=== PATIENT | male | born 1955 | race African-American/Black ===

== ENCOUNTER 2021-07-17 03:27 | Inpatient (IN) | payer MEDICARE, MEDICAID ==
[~2021-07-17] VITALS: Ht 182.9 cm; Wt 90.8 kg
[2021-07-17] MEDS ORDERED: MORPHINE SULFATE 4 MG/ML CPJ (NOT FOR IM USE) IV STA (03:50)
[2021-07-17] MEDS ORDERED: ONDANSETRON HCL 4MG/2ML INJ IV STA (03:50)
[2021-07-17 04:02] LABS: BASOPHILS % 0.5 % (0.0-2.0); EOSINOPHILS % 0.3 % (0.0-5.0); HEMATOCRIT. 44.9 % (42.0-52.0); LYMPHOCYTES % 14.6 % (20.0-50.0); MEAN CORPUSCULAR HEMOGLOBIN 31.1 pg (28.0-32.0); MEAN CORPUSCULAR VOLUME 92.8 fL (80.0-94.0); MEAN PLATELET VOLUME 7.5 fl (7.4-10.4); MONOCYTES % 5.6 % (2.0-8.0); PLATELET 247 x1000/uL (130-400); RED BLOOD CELL COUNT 4.83 mill/uL (4.7-6.1); RED CELL DISTRIBUTION WIDTH 13.6 % (11.6-14.6)
[2021-07-17 04:12] LABS: CHLORIDE 106 mEq/L (98-107)
[2021-07-17] MEDS ORDERED: MORPHINE SULFATE 4 MG/ML CPJ (NOT FOR IM USE) IV ONE (04:30)
[2021-07-17] MEDS ORDERED: METRONIDAZOLE 500 MG PREMIX 100 ML IV ONE (05:30)
[2021-07-17] MEDS ORDERED: LEVOFLOXACIN 750MG PREMIX 150 ML IV ONE (05:30)
[2021-07-17] MEDS ORDERED: FENTANYL CITRATE/PF 50MCG/ML 2ML VIAL IV ONE (06:00)
[2021-07-17] MEDS ORDERED: KETOROLAC 30MG/ML VIAL IV STA (06:19)
[2021-07-17] MEDS ORDERED: SODIUM CHLORIDE 0.9% 1,000 ML IV ONE (06:30)
[2021-07-17 08:00] VITALS: BP 124/71
[2021-07-17 08:45] LABS: CLARITY URINE CLEAR (CLEAR); COLOR URINE YELLOW (YELLOW); KETONES URINE 1+ (NEGATIVE); LEUKOCYTE ESTERASE URINE NEGATIVE (NEGATIVE); NITRITE URINE NEGATIVE (NEGATIVE); OCCULT BLOOD URINE NEGATIVE (NEGATIVE); PROTEIN URINE NEGATIVE (NEGATIVE); SPECIFIC GRAVITY URINE 1.017 (1.005-1.030)
[2021-07-17] MEDS ORDERED: HYDROCODONE/ACETAMINOPHEN 5/325MG TABLET PO NR (10:15)
[2021-07-17] MEDS ORDERED: NALOXONE HCL 0.4MG/ML VIAL IV PRN ×2 (10:15→19:15)
[2021-07-17 11:31] VITALS: BP 124/71
[2021-07-17 12:00] VITALS: BP 105/71
[2021-07-17] MEDS: DEXT 5%/0.9% NACL 1,000 ML IV SCH (14:34)
[2021-07-17] MEDS: PIPERACILLIN/TAZOBACTAM 3.375 G in DEXTROSE 5% WATER 50 ML IV SCH ×2 (14:34→22:02)
[2021-07-17 16:00] VITALS: BP 103/47
[2021-07-17] MEDS: HYDROCODONE/ACETAMINOPHEN 10/325MG TABLET PO PRN ×2 (19:49→19:52)
[2021-07-17 20:00] VITALS: BP 99/56
[2021-07-18] VITALS: BP 111/64
[2021-07-18 04:00] VITALS: BP 108/62
[2021-07-18] MEDS: HYDROCODONE/ACETAMINOPHEN 10/325MG TABLET PO PRN ×5 (04:21→22:42)
[2021-07-18] MEDS: PIPERACILLIN/TAZOBACTAM 3.375 G in DEXTROSE 5% WATER 50 ML IV SCH ×3 (05:06→21:01)
[2021-07-18] MEDS: DEXT 5%/0.9% NACL 1,000 ML IV SCH ×3 (05:11→20:15)
[2021-07-18 07:10] LABS: HEMATOCRIT. 42.3 % (42.0-52.0); HEMOGLOBIN. 14.3 g/dL (14.0-18.0); MEAN CORPUSCULAR HEMOGLOBIN 31.1 pg (28.0-32.0); MEAN CORPUSCULAR VOLUME 91.8 fL (80.0-94.0); MEAN PLATELET VOLUME 8.4 fl (7.4-10.4); PLATELET 250 x1000/uL (130-400); RED BLOOD CELL COUNT 4.61 mill/uL (4.7-6.1); RED CELL DISTRIBUTION WIDTH 13.7 % (11.6-14.6)
[2021-07-18 07:22] LABS: CHLORIDE 105 mEq/L (98-107)
[2021-07-18 08:00] VITALS: BP 121/66
[2021-07-18] MEDS ORDERED: LACTULOSE 20G/30ML UDC PO NR (08:00)
[2021-07-18] MEDS ORDERED: VANCOMYCIN 2,000 MG in DEXT 5% WATER 500 ML IV SCH (08:00)
[2021-07-18 08:48] LABS: PLATELET ESTIMATE NORMAL
[2021-07-18] MEDS: DOCUSATE SODIUM 250MG CAPSULE PO SCH (09:54)
[2021-07-18] MEDS: ONDANSETRON HCL 4MG/2ML INJ IV PRN (10:09)
[2021-07-18 11:56] VITALS: BP 112/82
[2021-07-18] MEDS ORDERED: BISACODYL 10MG SUPP PR NR (12:30)
[2021-07-18 16:00] VITALS: BP 139/82
[2021-07-18] MEDS ORDERED: SORBITOL 70% SOLN 30ML PO NR (16:00)
[2021-07-18 16:38] LABS: *AMPHETAMINES SCREEN URINE NEGATIVE (NEGATIVE); *BARBITURATES SCREEN URINE NEGATIVE (NEGATIVE)
[2021-07-18 16:39] LABS: *BENZODIAZEPINES SCREEN URINE NEGATIVE (NEGATIVE); *COCAINE SCREEN URINE NEGATIVE (NEGATIVE); METHADONE URINE SCREEN NEGATIVE (NEGATIVE); OPIATES URINE SCREEN PRESUMTIVE POSITIVE (NEGATIVE); PHENCYCLIDINE URINE SCREEN NEGATIVE (NEGATIVE)
[2021-07-18 16:40] LABS: CANNABINOID URINE SCREEN NEGATIVE (NEGATIVE)
[2021-07-18] MEDS: METOCLOPRAMIDE HCL 10MG/2ML VIAL IV SCH (16:53)
[2021-07-18 20:00] VITALS: BP 128/72
[2021-07-18] MEDS ORDERED: POTASSIUM CHLORIDE 20MEQ TABLET SR PO NR (20:15)
[2021-07-19] VITALS: BP 103/63
[2021-07-19] MEDS: METOCLOPRAMIDE HCL 10MG/2ML VIAL IV SCH ×3 (00:14→12:19)
[2021-07-19] MEDS ORDERED: MORPHINE SULFATE 2 MG/ML CPJ (NOT FOR IM USE) IV SCH (00:30)
[2021-07-19 04:00] VITALS: BP 133/77
[2021-07-19] MEDS ORDERED: VANCOMYCIN 1.25GM PMX (XELLIA) 250 ML IV SCH (04:00)
[2021-07-19] MEDS: KETOROLAC 30MG/ML VIAL IV PRN ×3 (05:29→21:35)
[2021-07-19] MEDS: PIPERACILLIN/TAZOBACTAM 3.375 G in DEXTROSE 5% WATER 50 ML IV SCH ×3 (05:29→21:21)
[2021-07-19 06:02] LABS: HEMATOCRIT. 46.4 % (42.0-52.0); HEMOGLOBIN. 15.6 g/dL (14.0-18.0); MEAN CORPUSCULAR HEMOGLOBIN 30.8 pg (28.0-32.0); MEAN CORPUSCULAR VOLUME 91.7 fL (80.0-94.0); PLATELET 284 x1000/uL (130-400); RED BLOOD CELL COUNT 5.07 mill/uL (4.7-6.1); RED CELL DISTRIBUTION WIDTH 13.8 % (11.6-14.6)
[2021-07-19 08:00] VITALS: BP 116/77
[2021-07-19] MEDS: DOCUSATE SODIUM 250MG CAPSULE PO SCH (09:00)
[2021-07-19 09:10] LABS: PLATELET ESTIMATE NORMAL
[2021-07-19 12:00] VITALS: BP 122/64
[2021-07-19] MEDS ORDERED: NA PHOS,M-B/NA PHOS,DI-BA ENEMA 118ML PR NR (14:15)
[2021-07-19] MEDS: DEXT 5%/0.9% NACL 1,000 ML IV SCH (15:39)
[2021-07-19 16:00] VITALS: BP 127/71
[2021-07-19] MEDS ORDERED: BISACODYL 10MG SUPP PR NR (16:15)
[2021-07-19 20:00] VITALS: BP 117/83
[2021-07-19] MEDS: HYDROCODONE/ACETAMINOPHEN 10/325MG TABLET PO PRN (21:21)
[2021-07-19] MEDS: ONDANSETRON HCL 4MG/2ML INJ IV PRN (21:21)
[2021-07-19] MEDS ORDERED: MORPHINE SULFATE 2 MG/ML CPJ (NOT FOR IM USE) IV NR (22:00)
[2021-07-19] MEDS ORDERED: VANCOMYCIN 1GM PMX (XELLIA) 200 ML IV SCH (23:00)
[2021-07-20] VITALS: BP 125/76
[2021-07-20] MEDS: DEXT 5%/0.9% NACL 1,000 ML IV SCH ×2 (00:59→12:15)
[2021-07-20 04:00] VITALS: BP 127/74
[2021-07-20] MEDS: PIPERACILLIN/TAZOBACTAM 3.375 G in DEXTROSE 5% WATER 50 ML IV SCH ×3 (05:19→20:41)
[2021-07-20 08:00] VITALS: BP 126/76
[2021-07-20] MEDS: HYDROCODONE/ACETAMINOPHEN 10/325MG TABLET PO PRN (09:30)
[2021-07-20] MEDS: KETOROLAC 30MG/ML VIAL IV PRN (09:35)
[2021-07-20 10:22] LABS: HEMATOCRIT. 42.5 % (42.0-52.0); HEMOGLOBIN. 14.5 g/dL (14.0-18.0); MEAN CORPUSCULAR HEMOGLOBIN 31.7 pg (28.0-32.0); MEAN CORPUSCULAR VOLUME 92.6 fL (80.0-94.0); PLATELET 292 x1000/uL (130-400); RED BLOOD CELL COUNT 4.59 mill/uL (4.7-6.1); RED CELL DISTRIBUTION WIDTH 13.8 % (11.6-14.6)
[2021-07-20 12:00] VITALS: BP 103/68
[2021-07-20 12:02] LABS: PLATELET ESTIMATE NORMAL
[2021-07-20 16:00] VITALS: BP 120/78
[2021-07-20] MEDS: DEXT 5%/0.9% NACL KCL 20MEQ/L 1,000 ML IV SCH (17:29)
[2021-07-20] MEDS ORDERED: DIATR MEGLU/DIATRIZOATE SOLN 30ML PO SCH (19:45)
[2021-07-20 20:00] VITALS: BP 143/82
[2021-07-20] MEDS: DIPHENHYDRAMINE 50MG/ML VIAL IV PRN (20:41)
[2021-07-21] VITALS: BP 140/69
[2021-07-21] MEDS: DEXT 5%/0.9% NACL KCL 20MEQ/L 1,000 ML IV SCH ×3 (01:12→23:13)
[2021-07-21] MEDS: KETOROLAC 30MG/ML VIAL IV PRN (01:16)
[2021-07-21 04:00] VITALS: BP 128/73
[2021-07-21] MEDS: PIPERACILLIN/TAZOBACTAM 3.375 G in DEXTROSE 5% WATER 50 ML IV SCH ×3 (06:31→23:13)
[2021-07-21 07:27] LABS: BASOPHILS % 0.2 % (0.0-2.0); EOSINOPHILS % 1.7 % (0.0-5.0); HEMATOCRIT. 39.4 % (42.0-52.0); HEMOGLOBIN. 13.4 g/dL (14.0-18.0); LYMPHOCYTES % 10.8 % (20.0-50.0); MEAN CORPUSCULAR VOLUME 91.3 fL (80.0-94.0); MEAN PLATELET VOLUME 7.7 fl (7.4-10.4); MONOCYTES % 11.1 % (2.0-8.0); NEUTROPHILS % 76.2 % (40.0-76.0); PLATELET 320 x1000/uL (130-400); RED BLOOD CELL COUNT 4.32 mill/uL (4.7-6.1); RED CELL DISTRIBUTION WIDTH 13.9 % (11.6-14.6)
[2021-07-21 07:52] LABS: INR 1.1; PARTIAL THROMBOPLASTIN TIME 26.4 sec (23.4-31.0); PROTHROMBIN TIME 11.6 sec (9.6-11.0)
[2021-07-21 08:00] VITALS: BP 132/75
[2021-07-21 12:00] VITALS: BP 121/74
[2021-07-21] MEDS ORDERED: SODIUM CHLORIDE 0.45% 1,000 ML IV SCH (13:45)
[2021-07-21 16:00] VITALS: BP 115/73
[2021-07-21] MEDS: SODIUM CHLORIDE 0.45% 1,000 ML IV SCH (17:22)
[2021-07-21] MEDS: METOCLOPRAMIDE HCL 10MG/2ML VIAL IV SCH ×2 (18:55→23:13)
[2021-07-21 20:00] VITALS: BP 138/77
[2021-07-21] MEDS: MORPHINE SULFATE 4 MG/ML CPJ (NOT FOR IM USE) IV PRN (20:37)
[2021-07-21] MEDS: DIPHENHYDRAMINE 50MG/ML VIAL IV PRN (23:13)
[2021-07-22] VITALS: BP 133/87
[2021-07-22 04:00] VITALS: BP 144/90
[2021-07-22] MEDS: SODIUM CHLORIDE 0.45% 1,000 ML IV SCH (04:06)
[2021-07-22] MEDS: METOCLOPRAMIDE HCL 10MG/2ML VIAL IV SCH ×4 (05:51→23:16)
[2021-07-22] MEDS: MORPHINE SULFATE 4 MG/ML CPJ (NOT FOR IM USE) IV PRN ×4 (05:55→23:16)
[2021-07-22] MEDS: PIPERACILLIN/TAZOBACTAM 3.375 G in DEXTROSE 5% WATER 50 ML IV SCH ×3 (05:56→22:29)
[2021-07-22 08:00] VITALS: BP 137/91
[2021-07-22 08:33] LABS: BASOPHILS % 0.5 % (0.0-2.0); HEMATOCRIT. 37.7 % (42.0-52.0); HEMOGLOBIN. 12.9 g/dL (14.0-18.0); LYMPHOCYTES % 14.6 % (20.0-50.0); MEAN CORPUSCULAR HEMOGLOBIN 31.2 pg (28.0-32.0); MEAN CORPUSCULAR VOLUME 91.3 fL (80.0-94.0); MEAN PLATELET VOLUME 7.5 fl (7.4-10.4); MONOCYTES % 13.8 % (2.0-8.0); NEUTROPHILS % 69.1 % (40.0-76.0); PLATELET 300 x1000/uL (130-400); RED BLOOD CELL COUNT 4.12 mill/uL (4.7-6.1)
[2021-07-22 10:14] LABS: PHOSPHORUS 2.8 mg/dL (2.5-4.9)
[2021-07-22 12:00] VITALS: BP 146/81
[2021-07-22] MEDS: DEXT 5%/0.9% NACL KCL 20MEQ/L 1,000 ML IV SCH (13:46)
[2021-07-22 16:00] VITALS: BP 145/87
[2021-07-22] MEDS: BLOOD SUGAR DIAGNOSTIC STRIP TEST SCH ×2 (18:30→23:31)
[2021-07-22 20:00] VITALS: BP 148/81
[2021-07-22] MEDS ORDERED: FAT EMULSIONS 250 ML IV SCH (21:00)
[2021-07-22] MEDS: TOTAL PARENTERAL NUTRITION 1,600 ML IV SCH (22:28)
[2021-07-22] MEDS: SODIUM CHLORIDE 0.9% 1,000 ML IV SCH (22:29)
[2021-07-23] VITALS: BP_SYST 143; BP_SYST 144; BP_DIAS 76; BP_DIAS 81
[2021-07-23] MEDS: DIPHENHYDRAMINE 50MG/ML VIAL IV PRN (00:59)
[2021-07-23] MEDS ORDERED: FAT EMULSIONS 250 ML IV SCH (02:00)
[2021-07-23 04:00] VITALS: BP 137/80
[2021-07-23] MEDS: METOCLOPRAMIDE HCL 10MG/2ML VIAL IV SCH ×3 (05:38→17:22)
[2021-07-23] MEDS: PIPERACILLIN/TAZOBACTAM 3.375 G in DEXTROSE 5% WATER 50 ML IV SCH ×3 (05:38→22:00)
[2021-07-23] MEDS: BLOOD SUGAR DIAGNOSTIC STRIP TEST SCH ×3 (05:53→18:00)
[2021-07-23 06:49] LABS: BASOPHILS % 0.3 % (0.0-2.0); EOSINOPHILS % 1.8 % (0.0-5.0); HEMATOCRIT. 36.5 % (42.0-52.0); HEMOGLOBIN. 12.3 g/dL (14.0-18.0); LYMPHOCYTES % 13.8 % (20.0-50.0); MEAN CORPUSCULAR HEMOGLOBIN 30.9 pg (28.0-32.0); MEAN PLATELET VOLUME 7.8 fl (7.4-10.4); MONOCYTES % 11.3 % (2.0-8.0); NEUTROPHILS % 72.8 % (40.0-76.0); PLATELET 316 x1000/uL (130-400); RED BLOOD CELL COUNT 3.96 mill/uL (4.7-6.1)
[2021-07-23] MEDS: MORPHINE SULFATE 4 MG/ML CPJ (NOT FOR IM USE) IV PRN ×3 (07:27→15:29)
[2021-07-23 08:00] VITALS: BP 127/65
[2021-07-23 12:00] VITALS: BP 129/70
[2021-07-23] MEDS ORDERED: BISACODYL 10MG SUPP PR NR (14:04)
[2021-07-23] MEDS: SODIUM CHLORIDE 0.9% 1,000 ML IV SCH (15:16)
[2021-07-23 16:00] VITALS: BP 128/74
[2021-07-23 16:12] LABS: BASOPHILS % 0.6 % (0.0-2.0); HEMATOCRIT. 37.1 % (42.0-52.0); HEMOGLOBIN. 12.3 g/dL (14.0-18.0); LYMPHOCYTES % 14.7 % (20.0-50.0); MEAN CORPUSCULAR HEMOGLOBIN 30.7 pg (28.0-32.0); MEAN CORPUSCULAR VOLUME 92.8 fL (80.0-94.0); MONOCYTES % 13.6 % (2.0-8.0); NEUTROPHILS % 69.1 % (40.0-76.0); PLATELET 311 x1000/uL (130-400); RED CELL DISTRIBUTION WIDTH 14.2 % (11.6-14.6)
[2021-07-23] MEDS ORDERED: SKIN ADHESIVE 0.7 GM EA TOP ONE (17:38)
[2021-07-23] MEDS ORDERED: BUPIVACAINE HCL/PF 0.5% (5MG/ML) 30ML ONE (17:38)
[2021-07-23] MEDS ORDERED: POLYMYXIN B SULFATE 500000 UNITS/VIAL ONE (17:38)
[2021-07-23] MEDS ORDERED: LIDOCAINE HCL 1% 10 MG/ML 10ML VIAL ONE (17:39)
[2021-07-23] MEDS ORDERED: ROCURONIUM BROMIDE 10MG/ML VIAL 5ML IV ONE (17:49)
[2021-07-23] MEDS ORDERED: NEOSTIGMINE METHYLSULFATE 1MG/ML 10 ML VIAL ONE (17:49)
[2021-07-23] MEDS ORDERED: PROPOFOL 200MG/20ML VIAL IV ONE (17:49)
[2021-07-23] MEDS ORDERED: MIDAZOLAM HCL 2 MG/2 ML VIAL ONE (17:49)
[2021-07-23] MEDS ORDERED: FENTANYL CITRATE/PF 50MCG/ML 2ML VIAL ONE (17:49)
[2021-07-23] MEDS ORDERED: GLYCOPYRROLATE 0.2 MG/ML 2ML VIAL ONE ×3 (17:49→20:27)
[2021-07-23] MEDS ORDERED: ONDANSETRON HCL 4MG/2ML INJ ONE (18:56)
[2021-07-23] MEDS ORDERED: DEXAMETHASONE 4MG/ML 1ML VIAL ONE (18:56)
[2021-07-23] MEDS ORDERED: METHYLENE BLUE 50 MG/10 ML AMP IV ONE (19:17)
[2021-07-23] MEDS ORDERED: NA PHOS,M-B/NA PHOS,DI-BA ENEMA 118ML PR NR (20:00)
[2021-07-23] MEDS ORDERED: ONDANSETRON HCL 4MG/2ML INJ IV PRN (20:15)
[2021-07-23] MEDS ORDERED: LABETALOL 5MG/ML SYR 20 MG/4 ML SYRINGE IV PRN (20:15)
[2021-07-23] MEDS ORDERED: MEPERIDINE HCL/PF 25MG/ML CPJ IV PRN (20:15)
[2021-07-23] MEDS ORDERED: LABETALOL HCL 5MG/ML VIAL 20ML IV ONE (20:39)
[2021-07-23 21:23] LABS: BASOPHILS % 0.3 % (0.0-2.0); EOSINOPHILS % 0.4 % (0.0-5.0); HEMATOCRIT. 38.5 % (42.0-52.0); HEMOGLOBIN. 12.6 g/dL (14.0-18.0); LYMPHOCYTES % 7.6 % (20.0-50.0); MEAN CORPUSCULAR HEMOGLOBIN 30.2 pg (28.0-32.0); MEAN CORPUSCULAR VOLUME 92.1 fL (80.0-94.0); MEAN PLATELET VOLUME 7.5 fl (7.4-10.4); MONOCYTES % 3.7 % (2.0-8.0); PLATELET 326 x1000/uL (130-400); RED BLOOD CELL COUNT 4.18 mill/uL (4.7-6.1); RED CELL DISTRIBUTION WIDTH 14.1 % (11.6-14.6)
[2021-07-23 21:28] LABS: CHLORIDE 119 mEq/L (98-107)
[2021-07-23 21:32] LABS: BG BASE EXCESS -4.5 mmol/L (-2.0-2.0); BG CARBOXYHEMOGLOBIN 0.6 % (0.5-1.5); BG DEOXYHEMOGLOBIN 3.7 % (0.0-5.0); BG FRACTION INSPIRED OXYGEN 100; BG HCO3 ACT 21.3 mmol/L (22.0-26.0); BG METHEMOGLOBIN 0.3 % (0.0-1.5); BG OXYGEN SATURATION 96.3 % (92.0-98.5); BG OXYHEMOGLOBIN 95.4 % (94.0-97.0); BG PCO2 41.7 mmHg (35.0-45.0); BG PH 7.326 (7.350-7.450); BG PO2 86.3 mmHg (75.0-100.0); BG SAMPLE SITE RIGHT RADIAL; BG TOTAL HEMOGLOBIN 13.6 g/dL (12.0-18.0); BG VENT MODE VENT - SIMV
[2021-07-23] MEDS: HYDROMORPHONE HCL/PF 2MG/ML CPJ IV PRN ×2 (22:24→22:30)
[2021-07-24] VITALS: BP 131/77
[2021-07-24] MEDS: TOTAL PARENTERAL NUTRITION 1,600 ML IV SCH ×2 (00:17→21:00)
[2021-07-24] MEDS: DEXT 5%/0.9% NACL KCL 20MEQ/L 1,000 ML IV SCH (00:33)
[2021-07-24] MEDS: METOCLOPRAMIDE HCL 10MG/2ML VIAL IV SCH ×4 (00:50→17:11)
[2021-07-24] MEDS: MORPHINE SULFATE 4 MG/ML CPJ (NOT FOR IM USE) IV PRN ×6 (01:01→17:12)
[2021-07-24 04:00] VITALS: BP 107/77
[2021-07-24] MEDS: PIPERACILLIN/TAZOBACTAM 3.375 G in DEXTROSE 5% WATER 50 ML IV SCH ×3 (05:29→23:52)
[2021-07-24] MEDS: BLOOD SUGAR DIAGNOSTIC STRIP TEST SCH ×4 (06:00→17:21)
[2021-07-24 08:00] VITALS: BP 131/74
[2021-07-24] MEDS ORDERED: BISACODYL 10MG SUPP PR SCH (09:00)
[2021-07-24 12:00] VITALS: BP 157/84
[2021-07-24 16:00] VITALS: BP 143/76
[2021-07-24] MEDS: SODIUM CHLORIDE 0.45% 1,000 ML IV SCH (19:45)
[2021-07-24 20:00] VITALS: BP 151/83
[2021-07-24] MEDS ORDERED: FAT EMULSIONS 250 ML IV SCH ×2 (21:00)
[2021-07-25] VITALS: BP 169/91
[2021-07-25] MEDS: METOCLOPRAMIDE HCL 10MG/2ML VIAL IV SCH ×4 (00:03→18:00)
[2021-07-25] MEDS: BLOOD SUGAR DIAGNOSTIC STRIP TEST SCH ×3 (00:21→12:29)
[2021-07-25] MEDS: DIPHENHYDRAMINE 50MG/ML VIAL IV PRN ×2 (00:45→21:33)
[2021-07-25] MEDS ORDERED: FAT EMULSIONS 250 ML IV SCH (00:51)
[2021-07-25 04:00] VITALS: BP 176/86
[2021-07-25] MEDS: PIPERACILLIN/TAZOBACTAM 3.375 G in DEXTROSE 5% WATER 50 ML IV SCH ×3 (06:25→21:40)
[2021-07-25] MEDS ORDERED: HYDROMORPHONE HCL/PF 2MG/ML CPJ IV PRN (07:30)
[2021-07-25 08:00] VITALS: BP 166/77
[2021-07-25 08:06] LABS: BASOPHILS % 0.4 % (0.0-2.0); EOSINOPHILS % 0.6 % (0.0-5.0); HEMATOCRIT. 40.4 % (42.0-52.0); HEMOGLOBIN. 13.3 g/dL (14.0-18.0); LYMPHOCYTES % 9.3 % (20.0-50.0); MEAN CORPUSCULAR HEMOGLOBIN 30.5 pg (28.0-32.0); MEAN CORPUSCULAR VOLUME 92.6 fL (80.0-94.0); MEAN PLATELET VOLUME 8.4 fl (7.4-10.4); NEUTROPHILS % 78.7 % (40.0-76.0); PLATELET 352 x1000/uL (130-400); RED BLOOD CELL COUNT 4.36 mill/uL (4.7-6.1); RED CELL DISTRIBUTION WIDTH 14.1 % (11.6-14.6)
[2021-07-25] MEDS ORDERED: LIDOCAINE HCL 1% 10 MG/ML 10ML VIAL ONE (08:16)
[2021-07-25] MEDS ORDERED: IPRATROPIUM/ALBUTEROL 0.5-3(2.5)MG/3ML NEB HHN PRN (09:45)
[2021-07-25] MEDS: MORPHINE SULFATE 2 MG/ML CPJ (NOT FOR IM USE) IV PRN ×2 (09:52→23:58)
[2021-07-25 12:00] VITALS: BP 160/87
[2021-07-25 16:00] VITALS: BP 129/68
[2021-07-25] MEDS: SODIUM CHLORIDE 0.45% 1,000 ML IV SCH (18:44)
[2021-07-25 20:00] VITALS: BP 152/74
[2021-07-26] VITALS: BP 141/74
[2021-07-26 04:00] VITALS: BP 159/90
[2021-07-26] MEDS: METOCLOPRAMIDE HCL 10MG/2ML VIAL IV SCH ×4 (04:50→23:36)
[2021-07-26] MEDS: PIPERACILLIN/TAZOBACTAM 3.375 G in DEXTROSE 5% WATER 50 ML IV SCH ×3 (05:00→22:23)
[2021-07-26 08:00] VITALS: BP 173/102
[2021-07-26 08:18] LABS: BASOPHILS % 0.2 % (0.0-2.0); EOSINOPHILS % 0.4 % (0.0-5.0); HEMATOCRIT. 39.2 % (42.0-52.0); LYMPHOCYTES % 7.3 % (20.0-50.0); MEAN CORPUSCULAR HEMOGLOBIN 30.2 pg (28.0-32.0); MEAN CORPUSCULAR VOLUME 90.9 fL (80.0-94.0); MONOCYTES % 8.7 % (2.0-8.0); NEUTROPHILS % 83.4 % (40.0-76.0); PLATELET 399 x1000/uL (130-400); RED BLOOD CELL COUNT 4.31 mill/uL (4.7-6.1); RED CELL DISTRIBUTION WIDTH 13.7 % (11.6-14.6)
[2021-07-26] MEDS: BLOOD SUGAR DIAGNOSTIC STRIP TEST SCH (09:00)
[2021-07-26] MEDS ORDERED: HYDRALAZINE 20MG/ML VIAL IV PRN (11:15)
[2021-07-26] MEDS ORDERED: HYDRALAZINE 10 MG in SODIUM CHLORIDE 0.9% 49.5 ML IV PRN (11:30)
[2021-07-26 12:00] VITALS: BP 141/87
[2021-07-26] MEDS: MORPHINE SULFATE 2 MG/ML CPJ (NOT FOR IM USE) IV PRN ×2 (12:03→21:34)
[2021-07-26 16:00] VITALS: BP 159/93
[2021-07-26] MEDS: SODIUM CHLORIDE 0.45% 1,000 ML IV SCH (18:32)
[2021-07-26 20:00] VITALS: BP 162/88
[2021-07-26] MEDS: DIPHENHYDRAMINE 50MG/ML VIAL IV PRN (21:35)
[2021-07-27] VITALS: BP 155/85
[2021-07-27] MEDS ORDERED: DIATR MEGLU/DIATRIZOATE SOLN 30ML PO SCH
[2021-07-27 04:00] VITALS: BP 163/97
[2021-07-27] MEDS: PIPERACILLIN/TAZOBACTAM 3.375 G in DEXTROSE 5% WATER 50 ML IV SCH ×3 (05:02→22:05)
[2021-07-27] MEDS: DIPHENHYDRAMINE 50MG/ML VIAL IV PRN ×2 (05:13→19:44)
[2021-07-27 07:38] LABS: BASOPHILS % 0.3 % (0.0-2.0); EOSINOPHILS % 0.9 % (0.0-5.0); HEMATOCRIT. 36.1 % (42.0-52.0); HEMOGLOBIN. 12.3 g/dL (14.0-18.0); LYMPHOCYTES % 10.1 % (20.0-50.0); MEAN CORPUSCULAR HEMOGLOBIN 30.9 pg (28.0-32.0); MEAN PLATELET VOLUME 8.2 fl (7.4-10.4); MONOCYTES % 9.2 % (2.0-8.0); NEUTROPHILS % 79.5 % (40.0-76.0); PLATELET 392 x1000/uL (130-400); RED BLOOD CELL COUNT 3.96 mill/uL (4.7-6.1); RED CELL DISTRIBUTION WIDTH 13.5 % (11.6-14.6)
[2021-07-27 08:00] VITALS: BP 133/83
[2021-07-27] MEDS: BLOOD SUGAR DIAGNOSTIC STRIP TEST SCH (09:00)
[2021-07-27 11:45] VITALS: BP 109/82
[2021-07-27] MEDS ORDERED: DIATR MEGLU/DIATRIZOATE SOLN 30ML PO NR (12:30)
[2021-07-27] MEDS ORDERED: DIATR MEGLU/DIATRIZOATE SOLN 30ML ONE (13:50)
[2021-07-27] MEDS ORDERED: IOHEXOL-350 100 ML BOTTLE ONE (13:51)
[2021-07-27] MEDS: MORPHINE SULFATE 2 MG/ML CPJ (NOT FOR IM USE) IV PRN (15:08)
[2021-07-27] MEDS ORDERED: IOHEXOL-300 100 ML BOTTLE ONE (16:24)
[2021-07-27] MEDS: SODIUM CHLORIDE 0.45% 1,000 ML IV SCH (19:15)
[2021-07-27 20:00] VITALS: BP 158/94
[2021-07-27] MEDS: TOTAL PARENTERAL NUTRITION 1,700 ML IV SCH (21:11)
[2021-07-28] VITALS: BP 138/80
[2021-07-28 04:00] VITALS: BP 149/82
[2021-07-28] MEDS: PIPERACILLIN/TAZOBACTAM 3.375 G in DEXTROSE 5% WATER 50 ML IV SCH ×3 (05:56→21:00)
[2021-07-28 07:04] LABS: BASOPHILS % 0.3 % (0.0-2.0); EOSINOPHILS % 1.3 % (0.0-5.0); HEMATOCRIT. 36.5 % (42.0-52.0); HEMOGLOBIN. 12.2 g/dL (14.0-18.0); LYMPHOCYTES % 9.5 % (20.0-50.0); MEAN CORPUSCULAR HEMOGLOBIN 30.6 pg (28.0-32.0); MEAN CORPUSCULAR VOLUME 91.4 fL (80.0-94.0); MEAN PLATELET VOLUME 8.3 fl (7.4-10.4); MONOCYTES % 9.7 % (2.0-8.0); NEUTROPHILS % 79.2 % (40.0-76.0); PLATELET 429 x1000/uL (130-400); RED BLOOD CELL COUNT 3.99 mill/uL (4.7-6.1); RED CELL DISTRIBUTION WIDTH 13.8 % (11.6-14.6)
[2021-07-28 08:00] VITALS: BP 147/90
[2021-07-28] MEDS: BLOOD SUGAR DIAGNOSTIC STRIP TEST SCH (08:50)
[2021-07-28 12:00] VITALS: BP 137/79
[2021-07-28] MEDS: DIPHENHYDRAMINE 50MG/ML VIAL IV PRN (15:32)
[2021-07-28 16:00] VITALS: BP 140/84
[2021-07-28] MEDS: SODIUM CHLORIDE 0.45% 1,000 ML IV SCH (19:15)
[2021-07-28 20:00] VITALS: BP 142/82
[2021-07-28] MEDS: TOTAL PARENTERAL NUTRITION 1,700 ML IV SCH (21:33)
[2021-07-29] VITALS: BP_SYST 146
[2021-07-29] MEDS: DIPHENHYDRAMINE 50MG/ML VIAL IV PRN ×2 (03:34→20:00)
[2021-07-29 04:00] VITALS: BP 145/87
[2021-07-29] MEDS: PIPERACILLIN/TAZOBACTAM 3.375 G in DEXTROSE 5% WATER 50 ML IV SCH (04:58)
[2021-07-29 07:50] LABS: BASOPHILS % 0.3 % (0.0-2.0); EOSINOPHILS % 1.2 % (0.0-5.0); HEMATOCRIT. 37.5 % (42.0-52.0); HEMOGLOBIN. 12.6 g/dL (14.0-18.0); LYMPHOCYTES % 10.8 % (20.0-50.0); MEAN CORPUSCULAR HEMOGLOBIN 31.1 pg (28.0-32.0); MEAN CORPUSCULAR VOLUME 92.9 fL (80.0-94.0); MEAN PLATELET VOLUME 8.2 fl (7.4-10.4); MONOCYTES % 9.1 % (2.0-8.0); NEUTROPHILS % 78.6 % (40.0-76.0); PLATELET 449 x1000/uL (130-400); RED BLOOD CELL COUNT 4.04 mill/uL (4.7-6.1); RED CELL DISTRIBUTION WIDTH 13.8 % (11.6-14.6)
[2021-07-29 08:00] VITALS: BP 128/90
[2021-07-29 10:36] LABS: BG BASE EXCESS 6.7 mmol/L (-2.0-2.0); BG CARBOXYHEMOGLOBIN 0.2 % (0.5-1.5); BG DEOXYHEMOGLOBIN 3.6 % (0.0-5.0); BG FRACTION INSPIRED OXYGEN 28; BG METHEMOGLOBIN 0.4 % (0.0-1.5); BG OXYGEN SATURATION 96.4 % (92.0-98.5); BG OXYHEMOGLOBIN 95.8 % (94.0-97.0); BG PCO2 38.3 mmHg (35.0-45.0); BG PH 7.512 (7.350-7.450); BG PO2 80.5 mmHg (75.0-100.0); BG SAMPLE SITE LEFT RADIAL; BG TOTAL HEMOGLOBIN 13.8 g/dL (12.0-18.0); BG VENT MODE NASAL CANNULA
[2021-07-29] MEDS ORDERED: CEFTRIAXONE 2 G PREMIX 50 ML IV SCH (11:15)
[2021-07-29 12:00] VITALS: BP 148/83
[2021-07-29] MEDS: METOCLOPRAMIDE HCL 10MG/2ML VIAL IV SCH ×3 (12:00→18:00)
[2021-07-29] MEDS: BLOOD SUGAR DIAGNOSTIC STRIP TEST SCH (12:00)
[2021-07-29] MEDS: METRONIDAZOLE 500 MG PREMIX 100 ML IV SCH ×2 (13:49→22:08)
[2021-07-29] MEDS: CEFTRIAXONE 2 G in DEXTROSE 5% WATER 50 ML IV SCH (13:49)
[2021-07-29 16:00] VITALS: BP 139/82
[2021-07-29 20:00] VITALS: BP 132/86
[2021-07-29] MEDS: SODIUM CHL 0.9% + KCL 20MEQ/L 1,000 ML IV SCH (20:00)
[2021-07-29] MEDS: TOTAL PARENTERAL NUTRITION 1,700 ML IV SCH (20:02)
[2021-07-30] VITALS: BP 128/74
[2021-07-30 04:00] VITALS: BP 142/86
[2021-07-30] MEDS: METRONIDAZOLE 500 MG PREMIX 100 ML IV SCH ×3 (05:51→22:10)
[2021-07-30] MEDS: METOCLOPRAMIDE HCL 10MG/2ML VIAL IV SCH ×4 (05:57→17:38)
[2021-07-30 06:43] LABS: BASOPHILS % 0.9 % (0.0-2.0); EOSINOPHILS % 2.2 % (0.0-5.0); HEMATOCRIT. 38.2 % (42.0-52.0); HEMOGLOBIN. 12.8 g/dL (14.0-18.0); LYMPHOCYTES % 12.5 % (20.0-50.0); MEAN CORPUSCULAR HEMOGLOBIN 30.9 pg (28.0-32.0); MEAN CORPUSCULAR VOLUME 92.1 fL (80.0-94.0); MEAN PLATELET VOLUME 8.2 fl (7.4-10.4); MONOCYTES % 9.6 % (2.0-8.0); NEUTROPHILS % 74.8 % (40.0-76.0); PLATELET 465 x1000/uL (130-400); RED BLOOD CELL COUNT 4.15 mill/uL (4.7-6.1); RED CELL DISTRIBUTION WIDTH 13.9 % (11.6-14.6)
[2021-07-30 08:00] VITALS: BP 123/83
[2021-07-30] MEDS: BLOOD SUGAR DIAGNOSTIC STRIP TEST SCH (08:49)
[2021-07-30 12:00] VITALS: BP 149/83
[2021-07-30] MEDS: CEFTRIAXONE 2 G in DEXTROSE 5% WATER 50 ML IV SCH (12:25)
[2021-07-30 16:00] VITALS: BP 134/76
[2021-07-30 20:00] VITALS: BP 146/78
[2021-07-30] MEDS: TOTAL PARENTERAL NUTRITION 1,700 ML IV SCH (20:23)
[2021-07-30] MEDS: DIPHENHYDRAMINE 50MG/ML VIAL IV PRN (20:23)
[2021-07-31] VITALS: BP 133/84
[2021-07-31] MEDS: METOCLOPRAMIDE HCL 10MG/2ML VIAL IV SCH ×5 (00:26→18:00)
[2021-07-31 04:00] VITALS: BP 132/82
[2021-07-31] MEDS: SODIUM CHL 0.9% + KCL 20MEQ/L 1,000 ML IV SCH (05:07)
[2021-07-31] MEDS: METRONIDAZOLE 500 MG PREMIX 100 ML IV SCH ×3 (05:07→22:09)
[2021-07-31 07:16] LABS: BASOPHILS % 0.6 % (0.0-2.0); EOSINOPHILS % 2.5 % (0.0-5.0); HEMOGLOBIN. 12.6 g/dL (14.0-18.0); LYMPHOCYTES % 14.5 % (20.0-50.0); MEAN CORPUSCULAR HEMOGLOBIN 30.6 pg (28.0-32.0); MEAN CORPUSCULAR VOLUME 92.3 fL (80.0-94.0); MEAN PLATELET VOLUME 8.3 fl (7.4-10.4); NEUTROPHILS % 72.4 % (40.0-76.0); PLATELET 454 x1000/uL (130-400); RED BLOOD CELL COUNT 4.12 mill/uL (4.7-6.1)
[2021-07-31 08:00] VITALS: BP 124/74
[2021-07-31] MEDS: BLOOD SUGAR DIAGNOSTIC STRIP TEST SCH (08:50)
[2021-07-31 12:00] VITALS: BP 136/75
[2021-07-31] MEDS: CEFTRIAXONE 2 G in DEXTROSE 5% WATER 50 ML IV SCH (12:07)
[2021-07-31 16:00] VITALS: BP 141/80
[2021-07-31 20:00] VITALS: BP 131/76
[2021-07-31] MEDS: DIPHENHYDRAMINE 50MG/ML VIAL IV PRN (20:52)
[2021-08-01] VITALS: BP 128/73
[2021-08-01] MEDS: METOCLOPRAMIDE HCL 10MG/2ML VIAL IV SCH ×4 (00:42→17:22)
[2021-08-01 04:00] VITALS: BP 132/73
[2021-08-01 06:44] LABS: BASOPHILS % 0.7 % (0.0-2.0); EOSINOPHILS % 2.2 % (0.0-5.0); HEMATOCRIT. 38.6 % (42.0-52.0); HEMOGLOBIN. 13.1 g/dL (14.0-18.0); MEAN CORPUSCULAR HEMOGLOBIN 31.5 pg (28.0-32.0); MEAN PLATELET VOLUME 8.3 fl (7.4-10.4); MONOCYTES % 9.6 % (2.0-8.0); NEUTROPHILS % 72.5 % (40.0-76.0); PLATELET 422 x1000/uL (130-400); RED BLOOD CELL COUNT 4.15 mill/uL (4.7-6.1); RED CELL DISTRIBUTION WIDTH 13.7 % (11.6-14.6)
[2021-08-01] MEDS: METRONIDAZOLE 500 MG PREMIX 100 ML IV SCH ×3 (06:50→21:03)
[2021-08-01 08:00] VITALS: BP 137/83
[2021-08-01] MEDS: BLOOD SUGAR DIAGNOSTIC STRIP TEST SCH (09:00)
[2021-08-01 12:00] VITALS: BP 130/80
[2021-08-01] MEDS: CEFTRIAXONE 2 G in DEXTROSE 5% WATER 50 ML IV SCH (13:30)
[2021-08-01] MEDS: SODIUM CHL 0.9% + KCL 20MEQ/L 1,000 ML IV SCH (13:31)
[2021-08-01 16:00] VITALS: BP 128/80
[2021-08-01 20:00] VITALS: BP 137/71
[2021-08-01] MEDS: DIPHENHYDRAMINE 50MG/ML VIAL IV PRN (21:05)
[2021-08-02] VITALS: BP 122/85
[2021-08-02 04:00] VITALS: BP 124/78
[2021-08-02] MEDS: METRONIDAZOLE 500 MG PREMIX 100 ML IV SCH ×3 (05:05→23:30)
[2021-08-02] MEDS: METOCLOPRAMIDE HCL 10MG/2ML VIAL IV SCH ×5 (05:10→23:07)
[2021-08-02 08:00] VITALS: BP 128/81
[2021-08-02 08:02] LABS: CHLORIDE 109 mEq/L (98-107)
[2021-08-02 08:05] LABS: BASOPHILS % 0.9 % (0.0-2.0); EOSINOPHILS % 2.2 % (0.0-5.0); HEMATOCRIT. 39.6 % (42.0-52.0); LYMPHOCYTES % 17.6 % (20.0-50.0); MEAN CORPUSCULAR HEMOGLOBIN 30.4 pg (28.0-32.0); MEAN CORPUSCULAR VOLUME 92.2 fL (80.0-94.0); MEAN PLATELET VOLUME 8.1 fl (7.4-10.4); MONOCYTES % 11.2 % (2.0-8.0); NEUTROPHILS % 68.1 % (40.0-76.0); PLATELET 457 x1000/uL (130-400); RED BLOOD CELL COUNT 4.29 mill/uL (4.7-6.1); RED CELL DISTRIBUTION WIDTH 13.8 % (11.6-14.6)
[2021-08-02] MEDS: BLOOD SUGAR DIAGNOSTIC STRIP TEST SCH (08:25)
[2021-08-02 12:00] VITALS: BP 142/80
[2021-08-02 16:00] VITALS: BP 130/77
[2021-08-02] MEDS: SODIUM CHL 0.9% + KCL 20MEQ/L 1,000 ML IV SCH (17:21)
[2021-08-02] MEDS: CEFTRIAXONE 2 G in DEXTROSE 5% WATER 50 ML IV SCH (17:22)
[2021-08-02 20:00] VITALS: BP 135/81
[2021-08-02] MEDS ORDERED: DIPHENHYDRAMINE 50MG CAPSULE ONE (23:21)
[2021-08-03] VITALS: BP 126/75
[2021-08-03 04:00] VITALS: BP 103/67
[2021-08-03] MEDS ORDERED: METOCLOPRAMIDE HCL 10MG/2ML VIAL ONE (05:07)
[2021-08-03] MEDS: METOCLOPRAMIDE HCL 10MG/2ML VIAL IV SCH (05:20)
[2021-08-03 07:42] LABS: BASOPHILS % 0.8 % (0.0-2.0); EOSINOPHILS % 1.9 % (0.0-5.0); HEMATOCRIT. 37.3 % (42.0-52.0); HEMOGLOBIN. 12.6 g/dL (14.0-18.0); LYMPHOCYTES % 19.7 % (20.0-50.0); MEAN PLATELET VOLUME 7.9 fl (7.4-10.4); MONOCYTES % 10.5 % (2.0-8.0); NEUTROPHILS % 67.1 % (40.0-76.0); PLATELET 406 x1000/uL (130-400); RED BLOOD CELL COUNT 4.05 mill/uL (4.7-6.1); RED CELL DISTRIBUTION WIDTH 13.5 % (11.6-14.6)
[2021-08-03 07:45] LABS: CHLORIDE 109 mEq/L (98-107)
[2021-08-03 08:00] VITALS: BP 126/71
[2021-08-03] MEDS: BLOOD SUGAR DIAGNOSTIC STRIP TEST SCH (09:00)
[2021-08-03 11:21] VITALS: BP 126/71
[2021-08-03 12:00] VITALS: BP 121/76
== END 2021-08-03 12:49 | disposition home health service (06) | DRG 853 ==
LOC: ER 03:27 → 6EST 06:25 → ENRESERV 07:37 → 6EST 07-19 23:11
PROVIDERS: ADMIT Internal Medicine; ATTEND Internal Medicine
PROC: 0D1M0Z4 Bypass Descending Colon to Cutaneous, Open Approach (ICD-10-PCS; principal; 2021-07-23)
PROC: 0DBN0ZZ Excision of Sigmoid Colon, Open Approach (ICD-10-PCS; 2021-07-23)
PROC: 02HV33Z Insertion of Infusion Device into Superior Vena Cava, Percutaneous Approach (ICD-10-PCS; 2021-07-25)
PROC: B5181ZA Fluoroscopy of Superior Vena Cava using Low Osmolar Contrast, Guidance (ICD-10-PCS; 2021-07-25)
PROC: B548ZZA Ultrasonography of Superior Vena Cava, Guidance (ICD-10-PCS; 2021-07-25)
PROC: 0D9670Z Drainage of Stomach with Drainage Device, Via Natural or Artificial Opening (ICD-10-PCS; 2021-07-29)
DX: A41.9 Sepsis, unspecified organism (principal); K65.9 Peritonitis, unspecified; E44.1 Mild protein-calorie malnutrition; K56.7 Ileus, unspecified; N17.9 Acute kidney failure, unspecified; K57.20 Diverticulitis of large intestine with perforation and abscess without bleeding; K86.89 Other specified diseases of pancreas; F17.210 Nicotine dependence, cigarettes, uncomplicated; E87.6 Hypokalemia; Z68.27 Body mass index [BMI] 27.0-27.9, adult; Z20.822 Contact with and (suspected) exposure to COVID-19; E86.0 Dehydration; R79.89 Other specified abnormal findings of blood chemistry; K42.9 Umbilical hernia without obstruction or gangrene; K63.5 Polyp of colon
CPT/HCPCS: 36415; 36573; 36600; 71045; 74018; 74176; 74177; 74181; 78582; 80048; 80053; 80202; 80305; 81003; 82375; 82465; 82805; 82962; 83735; 84100; 84134; 84145; 84478; 85025; 87070; 87075; 87076; 87077; 87186; 87426; 88305; 88307; 93005; 94002; 97162; 99285; A9558; C1725; J0360; J0696; J1100; J1170; J1200; J1885; J1956; J2250; J2270; J2405; J2543; J2704; J2710; J2765; J3010; J3370; J3480; J3490; J7030; J7040; J7042; J7060; Q0163; Q9963; Q9967; Q9968